=== PATIENT | female | born 1945 | race African-American/Black ===

== ENCOUNTER 2018-10-06 08:00 | Outpatient (CLI) | payer MEDICARE, BC ==
[2013-09-09 02:10] VITALS: BMI 24.6
[~2018-10-06 08:00] MED LIST: ATARAX 25 MG TA25 MG PO; BAYER CHEWABLE81 MG PO; COZAAR50 MG PO; DIOVAN160 MG PO; GLUCOPHAGE500 MG PO; METOPROLOL TAR100 MG GT; NORVASC5 MG PO; PEPCID20 MG PO; PREMPRO 0.625/21 TAB PO; SYNTHROID75 MCG PO
== END 2018-10-06 09:00 | disposition home or self-care (01) ==
LOC: D.MAMMO 08:00
DX: Z12.31 Encounter for screening mammogram for malignant neoplasm of breast (principal)

== ENCOUNTER 2020-12-23 15:30 | Outpatient (CLI) | payer MEDICARE, BC ==
[2013-09-09 02:10] VITALS: BMI 24.6
== END 2020-12-23 23:59 | disposition home or self-care (01) ==
LOC: D.MAMMO 15:30
PROVIDERS: ATTEND Emergency Medicine
DX: Z12.31 Encounter for screening mammogram for malignant neoplasm of breast (principal)